=== PATIENT | female | born 1980 | race American Indian/Alaskan Native ===

== ENCOUNTER 2021-05-02 05:22 | Emergency (ER) | payer MEDICAID ==
[2021-05-02 06:24] LABS: Basophils # (Auto) 0.1 K/mm3 (0.0-0.1); Basophils % (Auto) 0.8 % (0.0-1.8); Eosinophils # (Auto) 0.1 K/mm3 (0.0-0.4); Eosinophils % (Auto) 0.9 % (0.0-4.3); Hematocrit 35.7 % (30.3-42.9); Hemoglobin 12.1 gm/dl (10.1-14.3); Lymphocytes # (Auto) 2.7 K/mm3 (1.2-5.4); Lymphocytes % (Auto) 25.8 % (13.4-35.0); Mean Corpuscular HGB Conc 34 % (30-34); Mean Corpuscular Volume 88 fl (79-97); Monocytes # (Auto) 0.6 K/mm3 (0.0-0.8); Monocytes % (Auto) 5.9 % (0.0-7.3); Platelet Count 326 K/mm3 (140-440); Red Blood Count 4.05 M/mm3 (3.65-5.03); Red Cell Distribution Width 14.9 % (13.2-15.2)
[2021-05-02 06:44] LABS: Alanine Aminotransferase 9 units/L (7-56); Albumin 3.7 g/dL (3.9-5); BUN/Creatinine Ratio 17; Blood Urea Nitrogen 15 mg/dL (7-17); Calcium 8.3 mg/dL (8.4-10.2); Hemolysis Index 3
--- NOTE | 2021-05-02 06:48 | XRay Report ---
CHEST 2 VIEWS INDICATION: chest pain. COMPARISON: None FINDINGS: SUPPORT DEVICES: None. HEART: Within normal limits. LUNGS/PLEURA: No acute air space or interstitial disease. No pneumothorax. ADDITIONAL FINDINGS: None. IMPRESSION: 1. No acute findings. Signer Name: Saman Cancino MD Signed: 05/02/2021 6:44 AM Workstation Name: [id number]
--- NOTE | 2021-05-03 09:16 | Electrocardiograph Report ---
[facility] Test Date: 2021-05-02 Test Time: 05:34:11 Pat Name: CARMEN DIXON Department: Room: Gender: F Customer Support Representative: CHERRY : 1980 Requested By: ED DOC Order Number: [id number] Reading MD: Elías Selby Measurements Intervals [place] Rate: 84 P: 44 CA: 181 QRS: 37 QRSD: 93 T: 29 QT: 367 QTc: 435 Interpretive Statements Sinus rhythm No previous ECG available for comparison Electronically Signed On 05-03-2021 9:16:30 EDT by Elías Selby
== END 2021-05-02 06:30 | disposition left against medical advice (07) ==
LOC: ED 05:22
DX: R07.9 Chest pain, unspecified (principal); Z53.21 Procedure and treatment not carried out due to patient leaving prior to being seen by health care provider
CPT/HCPCS: 36415; 71046; 80053; 84484; 85025; 93005

== ENCOUNTER 2021-06-29 08:13 | Emergency (ER) | payer MEDICAID ==
[2021-06-29 08:18] VITALS: BP 136/84
[2021-06-29] MEDS ORDERED: SODIUM CHLORIDE 0.9% 1000 ML 1,000 ML IV ONE (08:32)
[2021-06-29] MEDS ORDERED: ONDANSETRON 4 MG/2 ML INJ IV ONE (08:32)
[2021-06-29] MEDS ORDERED: DICYCLOMINE 10 MG/5 ML ORAL LIQD PO ONE (08:33)
[2021-06-29 08:36] LABS: Bacteria,Urine 1+ /HPF (Negative); Bilirubin,Urine NEG (Negative); Blood,Urine SM (Negative); Color,Urine Straw (Yellow); Mucus,Urine FEW /HPF; Protein,Urine <15 mg/dL mg/dL (Negative); Urobilinogen,Urine < 2.0 mg/dL (<2.0); WBC,Urine < 1.0 /HPF (0.0-6.0)
[2021-06-29 08:59] LABS: Basophils % (Auto) 0.4 % (0.0-1.8); Eosinophils % (Auto) 0.5 % (0.0-4.3); Hematocrit 36.1 % (30.3-42.9); Hemoglobin 12.5 gm/dl (10.1-14.3); Lymphocytes # (Auto) 1.4 K/mm3 (1.2-5.4); Lymphocytes % (Auto) 15.8 % (13.4-35.0); Mean Corpuscular HGB Conc 35 % (30-34); Mean Corpuscular Volume 89 fl (79-97); Monocytes # (Auto) 0.4 K/mm3 (0.0-0.8); Monocytes % (Auto) 4.4 % (0.0-7.3); Platelet Count 317 K/mm3 (140-440); Red Blood Count 4.06 M/mm3 (3.65-5.03); Red Cell Distribution Width 14.6 % (13.2-15.2)
[2021-06-29 09:27] LABS: Alanine Aminotransferase 9 units/L (7-56); Albumin 3.9 g/dL (3.9-5); BUN/Creatinine Ratio 17; Blood Urea Nitrogen 10 mg/dL (7-17); Hemolysis Index 3
--- NOTE | 2021-06-29 10:23 | Emergency Department Report ---
ED Abdominal Pain HPI - General Chief Complaint: Nausea/Vomiting/Diarrhea Stated Complaint: ABD PAIN Time Seen by Provider: 06/29/21 08:25 Source: patient Mode of arrival: Ambulatory Limitations: No Limitations - History of Present Illness Initial Comments: The patient was evaluated in the emergency department for symptoms described in the history of present illness. He/she was evaluated in the context of the global COVID-19 pandemic, which necessitated consideration that the patient might be at risk for infection with the virus that causes COVID-19. Institutional protocols and algorithms that pertain to the evaluation of patients at risk for COVID-19 are in a state of rapid change based on information released by regulatory bodies including the CDC and federal and state organizations. These policies and algorithms were followed during the patient's care in the emergency department. Please note that these policies, procedures and recommendations changed on a rapid basis. 41-year-old morbid obese -[place] female presents to the emergency room complaining of abdominal cramping that is increased in the last 2 days. She reports nausea and vomiting and diarrhea last 2 days. She states that she has a headache. Her last menstrual period was 06/15/2021. She reports that she does not eat any unusual foods and does not eat beef or pork. Patient states that she has been vomiting and has felt like the room is spinning. She does have a past medical history of lupus but currently does not take any medications. Patient reports she does have a primary care provider and last saw him in April. She reports she had history of Covid at the end of April. She was not admitted to the hospital and she is still not vaccinated. MD Complaint: abdominal pain Onset/Timin -: days(s) Location: diffuse Radiation: none Severity scale (0 -10): 8 Quality: cramping Consistency: constant Improves With: nothing Worsens With: eating Associated Symptoms: nausea, vomiting, diarrhea - Related Data LMP Date: 06/18/21 Previous Rx's Medication Instructions Recorded Last Taken Type Dicyclomine [Bentyl] 10 mg PO QID PRN 5 Days #1 bottle 06/29/21 Unknown Rx Ondansetron [Zofran Odt] 4 mg PO Q8HR PRN #12 tab.rapdis 06/29/21 Unknown Rx hydrOXYzine HCL [Atarax] 25 mg PO Q6HR PRN #20 tablet 06/29/21 Unknown Rx Allergies Allergy/AdvReac Type Severity Reaction Status Date / Time No Known Allergies Allergy Unverified 05/02/21 05:37 ED Review of Systems ROS: Stated complaint: ABD PAIN Other details as noted in HPI Comment: All other systems reviewed and negative ED Past Medical Hx - Past Medical History Previous Medical History?: No - Surgical History Past Surgical History?: No - Social History Smoking Status: Never Smoker Substance Use Type: None - Medications Home Medications: Home Medications Medication Instructions Recorded Confirmed Last Taken Type Dicyclomine [Bentyl] 10 mg PO QID PRN 5 Days #1 bottle 06/29/21 Unknown Rx Ondansetron [Zofran Odt] 4 mg PO Q8HR PRN #12 tab.rapdis 06/29/21 Unknown Rx hydrOXYzine HCL [Atarax] 25 mg PO Q6HR PRN #20 tablet 06/29/21 Unknown Rx ED Physical Exam - General Limitations: No Limitations General appearance: alert - Head Head exam: Present: atraumatic, normocephalic - Eye Eye exam: Present: normal appearance - ENT ENT exam: Present: mucous membranes moist, normal external ear exam - Neck Neck exam: Present: normal inspection - Respiratory Respiratory exam: Present: normal lung sounds bilaterally. Absent: chest wall tenderness, accessory muscle use - Cardiovascular Cardiovascular Exam: Present: regular rate, normal heart sounds - GI/Abdominal GI/Abdominal exam: Present: soft, normal bowel sounds. Absent: distended - Extremities Exam Extremities exam: Present: normal inspection, full ROM - Back Exam Back exam: Present: normal inspection. Absent: muscle spasm - Neurological Exam Neurological exam: Present: alert, oriented X3, normal gait - Psychiatric Psychiatric exam: Present: normal affect, normal mood - Skin Skin exam: Present: warm, dry, intact, normal color. Absent: rash ED Course Vital Signs 06/29/21 08:17 Temperature 98.6 F Respiratory 20 Rate Blood Pressure 136/84 - Reevaluation(s) Reevaluation #1: 06/29/21 10:23 Patient reports that she feels much better after having fluids antiemetic and Bentyl. ED Medical Decision Making - Lab Data Result diagrams: 06/29/21 08:41 06/29/21 08:41 - Medical Decision Making 52-year-old -[place] female presents to the emergency room complaining of right side lower jaw pain and swelling that started on 06/24/2021. Patient states that she is aware that she has a bad tooth. She complains that she has a little numbness to her lip. She admits that she has not taken her atenolol. Patient's states that she is followed by Dr. Escamilla her home care specialist but does not have a dentist. She does have a history of A. fib and has a dual defibrillator implantable device. She denies any chest pain no shortness of breath a mild headache. CBC CMP hCG urinalysis lipase are within normal limits. Patient was given IV fluids antiemetics and Bentyl. All lab are stable. N/v and Diarrhea has improved. Fluids and meds has improved symptoms. The patient is resting comfortably and feels better, is alert and in no distress. The repeat examination is unremarkable and benign; in particular, there is no discomfort at the McBurney's point and there is no pulsating mass. The history, exam and diagnostic testing, and current condition do not suggest an acute appendicitis, bowel obstruction, or acute cholecystitis, bowel perforation, major gastrointestinal bleeding, severe diverticulitis, abdominal aorta, mesenteric ischemia, volvulus, sepsis, or other significant pathology to warrant further testing, continued ED treatment, admission, or surgical eval uation at this point. The vital signs have been stable. The patient does not have uncomfortable pain, irretractable vomiting, or other significant symptoms. The patient's condition is stable and appropriate for discharge from the emergency room. The patient will pursue further outpatient evaluation with the primary care physician or other designated or consulting physician as indicated in the discharge instructions. Critical care attestation.: If time is entered above; I have spent that time in minutes in the direct care of this critically ill patient, excluding procedure time. ED Disposition Clinical Impression: Nausea vomiting and diarrhea, Abdominal cramping, Vertigo Disposition: HOME / SELF CARE / HOMELESS Is pt being admited?: No Does the pt Need Aspirin: No Condition: Stable Instructions: Nausea, Adult, Eeqx-[id number], Abdominal Pain, Adult, Uwsr-xg-Nzzy, Diarrhea, Adult, [id number]-[id number] Additional Instructions: Labs are stable urinalysis is negative. I recommend taking medication increase your water intake advance your diet as tolerated. Prescriptions: hydrOXYzine HCL [Atarax] 25 mg PO Q6HR PRN #20 tablet PRN Reason: Vertigo Dicyclomine [Bentyl] 10 mg PO QID PRN 5 Days #1 bottle PRN Reason: Abdominal cramping Ondansetron [Zofran Odt] 4 mg PO Q8HR PRN #12 tab.rapdis PRN Reason: Nausea And Vomiting Referrals: [facility] [Provider Group] - 3-5 Days Forms: Work/School Release Form(ED) Time of Disposition: 10:33
== END 2021-06-29 11:03 | disposition home or self-care (01) ==
LOC: ED 08:13
DX: R11.2 Nausea with vomiting, unspecified (principal); R19.7 Diarrhea, unspecified; R10.9 Unspecified abdominal pain; R42 Dizziness and giddiness
CPT/HCPCS: 36415; 80053; 81001; 83690; 84702; 85025; 96361; 96374; 99283; J2405; J7030

== ENCOUNTER 2022-04-24 01:06 | Emergency (ER) | payer MEDICAID ==
--- NOTE | 2022-04-24 02:15 | XRay Report ---
CHEST 2 VIEWS INDICATION / CLINICAL INFORMATION: COUGH. COMPARISON: 2 views of the chest from 05/02/2021. FINDINGS: SUPPORT DEVICES: None. HEART / MEDIASTINUM: No significant abnormality. LUNGS / PLEURA: No significant pulmonary abnormality. No significant pleural effusion. No pneumothora x. ADDITIONAL FINDINGS: No significant additional findings. IMPRESSION: 1. No acute abnormality of the chest. Signer Name: Kodak Christy MD Signed: 04/24/2022 2:10 AM Workstation Name: [id number]
[2022-04-24] MEDS ORDERED: ALBUTEROL 2.5 MG/3 ML NEBU IH ONE (04:14)
[2022-04-24] MEDS ORDERED: predniSONE 20 MG TAB PO ONE (04:14)
--- NOTE | 2022-04-24 04:32 | Emergency Department Report ---
- General Chief Complaint: Upper Respiratory Infection Stated Complaint: CHEST PAIN,TIGHTNESS Source: patient Mode of arrival: Ambulatory Limitations: No Limitations - History of Present Illness Initial Comments: Patient is a 41-year-old female with no past medical history presents to the ED with complaint of acute onset persistent nasal and sinus congestion, chest tightness, wheezing, pleuritic chest wall pain with cough and persistent dry cough for the last 5 days. Patient states that the symptoms are especially worse at night when she lays down with significant wheezing and chest tightness. Patient denies dizziness, syncope, fever, chills, sore throat, headache, abdominal pain, nausea and vomiting or diarrhea, back pain or change in vision. MD Complaint: cough, rhinorrhea, nasal congestion -: Sudden, days(s) (5) Severity: moderate Severity scale (0 -10): 5 Quality: sharp, aching Consistency: constant Improves With: nothing Worsens With: nothing Associated Symptoms: denies other symptoms, myalgias, headache, rhinorrhea, nasal congestion, cough. denies: chills, diaphoresis, sore throat, stiff neck, chest pain, shortness of breath, abdominal pain, nausea, vomiting, diarrhea, dysuria, rash, confusion, weight loss, epistaxis, hoarseness, ear pain Treatments Prior to Arrival: "cold medicine" - Related Data Previous Rx's Medication Instructions Recorded Last Taken Type Dicyclomine [Bentyl] 10 mg PO QID PRN 5 Days #1 bottle 06/29/21 Unknown Rx Ondansetron [Zofran Odt] 4 mg PO Q8HR PRN #12 tab.rapdis 06/29/21 Unknown Rx hydrOXYzine HCL [Atarax] 25 mg PO Q6HR PRN #20 tablet 06/29/21 Unknown Rx Albuterol Sulfate [Proventil Hfa] 1 - 2 puff IH Q4H PRN #1 inh 04/24/22 Unknown Rx Benzonatate [Tessalon Perles] 100 mg PO Q8HR #30 cap 04/24/22 Unknown Rx Cetirizine HCl [Zyrtec 10mg tab] 10 mg PO DAILY #30 tab 04/24/22 Unknown Rx predniSONE [Deltasone] 40 mg PO QDAY #10 tab 04/24/22 Unknown Rx Allergies Allergy/AdvReac Type Severity Reaction Status Date / Time No Known Allergies Allergy Unverified 05/02/21 05:37 ED Review of Systems ROS: Stated complaint: CHEST PAIN,TIGHTNESS Other details as noted in HPI Constitutional: denies: chills, fever Eyes: denies: eye pain, eye discharge, vision change ENT: congestion. denies: ear pain, throat pain Respiratory: cough, shortness of breath, wheezing Cardiovascular: denies: chest pain, palpitations Endocrine: no symptoms reported Gastrointestinal: denies: abdominal pain, nausea, vomiting, diarrhea Genitourinary: denies: urgency, dysuria, discharge Musculoskeletal: denies: back pain, joint swelling, arthralgia Skin: denies: rash, lesions Neurological: denies: headache, weakness, paresthesias Psychiatric: denies: anxiety, depression Hematological/Lymphatic: denies: easy bleeding, easy bruising ED Past Medical Hx - Social History Smoking Status: Never Smoker Substance Use Type: None - Medications Home Medications: Home Medications Medication Instructions Recorded Confirmed Last Taken Type Dicyclomine [Bentyl] 10 mg PO QID PRN 5 Days #1 bottle 06/29/21 Unknown Rx Ondansetron [Zofran Odt] 4 mg PO Q8HR PRN #12 tab.rapdis 06/29/21 Unknown Rx hydrOXYzine HCL [Atarax] 25 mg PO Q6HR PRN #20 tablet 06/29/21 Unknown Rx Albuterol Sulfate [Proventil Hfa] 1 - 2 puff IH Q4H PRN #1 inh 04/24/22 Unknown Rx Benzonatate [Tessalon Perles] 100 mg PO Q8HR #30 cap 04/24/22 Unknown Rx Cetirizine HCl [Zyrtec 10mg tab] 10 mg PO DAILY #30 tab 04/24/22 Unknown Rx predniSONE [Deltasone] 40 mg PO QDAY #10 tab 04/24/22 Unknown Rx ED Physical Exam - General Limitations: No Limitations General appearance: alert, in no apparent distress - Head Head exam: Present: atraumatic, normocephalic, normal inspection - Eye Eye exam: Present: normal appearance, PERRL, EOMI Pupils: Present: normal accommodation - ENT ENT exam: Present: normal orophraynx, mucous membranes moist, TM's normal bilaterally, normal external ear exam, other (Grossly congested nasal passages) - Neck Neck exam: Present: normal inspection, full ROM. Absent: tenderness - Respiratory Respiratory exam: Present: normal lung sounds bilaterally, wheezes (Mild diffuse coarse wheezes throughout). Absent: respiratory distress, rales, stridor, chest wall tenderness, accessory muscle use, decreased breath sounds, prolonged expiratory - Cardiovascular Cardiovascular Exam: Present: normal rhythm, tachycardia, normal heart sounds. Absent: systolic murmur, diastolic murmur, rubs, gallop - GI/Abdominal GI/Abdominal exam: Present: soft, normal bowel sounds. Absent: tenderness, guarding, hyperactive bowel sounds, hypoactive bowel sounds, organomegaly - Extremities Exam Extremities exam: Present: normal inspection, full ROM, normal capillary refill. Absent: tenderness - Back Exam Back exam: Present: normal inspection, full ROM. Absent: tenderness, CVA tenderness (R), CVA tenderness (L), muscle spasm, paraspinal tenderness, lana tebral tenderness - Neurological Exam Neurological exam: Present: alert, oriented X3, CN II-XII intact, normal gait, reflexes normal - Psychiatric Psychiatric exam: Present: normal affect, normal mood - Skin Skin exam: Present: warm, dry, intact, normal color. Absent: rash ED Course Vital Signs 04/24/22 01:07 Temperature 98.2 F Pulse Rate 109 H Respiratory 18 Rate Blood Pressure 141/93 [Right] O2 Sat by Pulse 100 Oximetry ED Medical Decision Making - Radiology Data Radiology results: report reviewed, image reviewed [address] [address] XRay Report Signed Patient: CARMEN DIXON MR# : [id number] : 1980 Acct:[id number] Age/Sex: 41 / F ADM Date: 04/24/22 Loc: ED Attending Dr: Ordering Physician: ED MD ALONDRA Date of Service: 04/24/22 Procedure(s): XR chest routine 2V Accession Number(s): [id number] cc: ED MD ALONDRA Fluoro Time In Minutes: CHEST 2 VIEWS INDICATION / CLINICAL INFORMATION: COUGH. COMPARISON: 2 views of the chest from 05/02/2021. FINDINGS: SUPPORT DEVICES: None. HEART / MEDIASTINUM: No significant abnormality. LUNGS / PLEURA: No significant pulmonary abnormality. No significant pleural effusion. No pneumothorax. ADDITIONAL FINDINGS: No significant additional findings. IMPRESSION: 1. No acute abnormality of the chest. Signer Name: Kodak Christy MD Signed: 04/24/2022 2:10 AM Workstation Name: [id number] Transcribed By: MARKEL Dictated By: Kodak Christy MD Electronically Authenticated By: Kodak Christy MD Signed Date/Time: 04/24/22209 DD/ 9 TD/TT: - Differential Diagnosis URI; bronchitis; pneumonia; Rhinitis Critical care attestation.: If time is entered above; I have spent that time in minutes in the direct care of this critically ill patient, excluding procedure time. ED Disposition Clinical Impression: Acute upper respiratory infection Acute bronchitis Qualifiers: Bronchitis organism: other organism Qualified Code(s): J20.8 - Acute bronchitis due to other specified organisms Disposition: HOME / SELF CARE / HOMELESS Is pt being admited?: No Does the pt Need Aspirin: No Condition: Stable Instructions: Acute Bronchitis (ED), Upper Respiratory Infection, Adult, Wvxx-vg-Guzi, Cough, Adult, Ggmg-[id number], Acute Bronchitis, Adult, [id number]-vu-Mxfb Additional Instructions: Chest x-ray showed no acute cardiopulmonary abnormalities or pneumonitis. Therefore take medication with food, drink plenty of fluids and follow-up with your primary care physician in 7 to 10 days for reevaluation. Return to the ED immediately if symptoms get worse. Prescriptions: predniSONE [Deltasone] 40 mg PO QDAY #10 tab Albuterol Sulfate [Proventil Hfa] 1 - 2 puff IH Q4H PRN #1 inh PRN Reason: Wheezing Benzonatate [Tessalon Perles] 100 mg PO Q8HR #30 cap Cetirizine HCl [Zyrtec 10mg tab] 10 mg PO DAILY #30 tab Referrals: [facility] [Provider Group] - 7-10 days Time of Disposition: 04:31 Print Language: PANAMANIAN
[2022-04-24 05:20] VITALS: BP 134/88
--- NOTE | 2022-04-24 18:43 | Electrocardiograph Report ---
[facility] Test Date: 2022-04-24 Test Time: 01:16:41 Pat Name: CARMEN DIXON Department: Room: Gender: F Circulation Representative: CAITIE : 1980 Requested By: HILLARY TARANGO Order Number: [id number] Reading MD: Mars Rahman Measurements Intervals [place] Rate: 95 P: 50 VT: 163 QRS: 53 QRSD: 90 T: 39 QT: 342 QTc: 429 Interpretive Statements Sinus rhythm Compared to ECG 05/02/2021 05:34:11 No significant changes Electronically Signed On 04-24-2022 18:43:38 EDT by Mars Rahman
== END 2022-04-25 05:21 | disposition home or self-care (01) ==
LOC: ED 01:06
DX: J06.9 Acute upper respiratory infection, unspecified (principal); J20.9 Acute bronchitis, unspecified; Z79.899 Other long term (current) drug therapy
CPT/HCPCS: 71046; 93005; 94640; 99283